=== PATIENT | female | born 1970 | race Caucasian/White ===

== ENCOUNTER 2022-05-03 15:09 | Outpatient (CLI) | payer OTHER ==
[2022-05-03 15:39] LABS: Hemoglobin 12.6 g/dL (12.0-15.5); Mean Corpuscular Hemoglobin 35.2 pg (27.0-33.0); Mean Corpuscular Volume 103.6 fl (81.6-98.3); Mean Platelet Volume 8.6 fl (7.4-10.4); Platelet Count 154 10x3/uL (150-450); RBC Distribution Width 14.2 % (11.5-14.5); Red Blood Cell (RBC) Count 3.58 10x6/uL (3.90-5.03); White Blood Cell (WBC) Count 4.3 10x3/uL (3.5-10.5)
[2022-05-03 15:49] LABS: BHCG - Serum Negative (NEGATIVE); Pregs Control Background? CLEAR/WHITE (CLR/WHITE); Pregs Control Bar Appear? YES (CONTROL BAR)
== END 2022-05-03 15:10 | disposition home or self-care (01) ==
LOC: CSHLAB 15:09
PROVIDERS: ATTEND Obstetrics & Gynecology
DX: Z01.812 Encounter for preprocedural laboratory examination (principal); D25.9 Leiomyoma of uterus, unspecified; N93.9 Abnormal uterine and vaginal bleeding, unspecified
CPT/HCPCS: 84703; 85027; 86850; 86900; 86901

== ENCOUNTER 2022-05-05 09:28 | Day surgery (SDC) | payer OTHER ==
[2022-05-03 12:52] VITALS: BMI 33.5
[2022-05-05] MEDS ORDERED: Midazolam HCl 2 mg/2 ml Vial ONE (10:49)
[2022-05-05] MEDS ORDERED: CEFAZOLIN 2 GM VIAL ONE (10:55)
[2022-05-05] MEDS ORDERED: PROPOFOL 20 ML ONE (11:01)
[2022-05-05] MEDS ORDERED: Ondansetron PF 4 MG/2 ML Vial ONE ×2 (11:01→12:33)
[2022-05-05] MEDS ORDERED: Fentanyl 100 MCG/2 ML VIAL ONE (11:01)
[2022-05-05] MEDS ORDERED: Lidocaine 1% PF 5 ML VIAL ONE (11:01)
[2022-05-05] MEDS ORDERED: Dexamethasone 4 mg/ml Vial ONE (11:01)
== END 2022-05-05 13:35 | disposition home or self-care (01) ==
LOC: CSHSDC 09:28
PROVIDERS: ATTEND Obstetrics & Gynecology
PROC: 0UB98ZZ Excision of Uterus, Via Natural or Artificial Opening Endoscopic (ICD-10-PCS; principal; 2022-05-05)
DX: C54.1 Malignant neoplasm of endometrium (principal); N92.1 Excessive and frequent menstruation with irregular cycle; E03.9 Hypothyroidism, unspecified; Z79.899 Other long term (current) drug therapy; Z85.3 Personal history of malignant neoplasm of breast; Z88.5 Allergy status to narcotic agent
CPT/HCPCS: 88305; J1100; J2250; J2405; J2704; J3010